=== PATIENT | female | born 1960 | race Caucasian/White ===

== ENCOUNTER 2018-11-21 10:44 | Emergency (ER) | payer OTHER ==
[2018-11-21 10:59] VITALS: TEMP 98; BMI 29.2
--- NOTE | 2018-11-21 11:00 | PDOC ---
History of Present Illness - General Chief Complaint: Blood Pressure Problem Stated Complaint: HYPERTENSION Time Seen by Provider: 11/21/18 10:59 - History of Present Illness Initial Comments: 11/21/18 10:59 Ms. Traore is a 58 yo female w/ pmh of HTN who presents for evaluation of palpitations and increased BP. Patient reports she has had them intermittently since 11/11 and has had 2 days of elevated BP at home in the 180's which concerned her. Patient denies any pain and does not have any palpitations currently. Also complains of 1 week of increased urinary frequency. The patient denies chest pain, shortness of breath, headache and dizziness. Denies fever, chills, nausea, vomit, diarrhea and constipation. Cardiology: Dr. Haddad Past History - Past Medical History Allergies/Adverse Reactions: Allergies Allergy/AdvReac Type Severity Reaction Status Date / Time Sulfa (Sulfonamide Allergy Verified 11/21/18 10:48 Antibiotics) Home Medications: Ambulatory Orders Metoprolol Succinate [Toprol XL -] 25 mg PO BID #60 tab.sr.24h 08/07/15 Amlodipine Besylate [Norvasc -] 2.5 mg PO DAILY #30 tablet 11/21/18 HTN: Yes - Surgical History Cholecystectomy: Yes - Suicide/Smoking/Psychosocial Hx Smoking History: Never smoked Have you smoked in the past 12 months: No If you are a former smoker, when did you quit?: 20 years ago Hx Alcohol Use: No Drug/Substance Use Hx: No Substance Use Type: None Review of Systems - Review of Systems Comments:: 11/21/18 10:59 GENERAL/CONSTITUTIONAL: No fever or chills. No weakness. HEAD, EYES, EARS, NOSE AND THROAT: No change in vision. No ear pain or discharge. No sore throat. CARDIOVASCULAR: +Palpitations as described. No chest pain or shortness of breath RESPIRATORY: No cough, wheezing, or hemoptysis. GASTROINTESTINAL: No nausea, vomiting, diarrhea or constipation. GENITOURINARY: +Increased urinary frequency. MUSCULOSKELETAL: No joint or muscle swelling or pain. No neck or back pain. SKIN: No rash NEUROLOGIC: No headache, vertigo, loss of consciousness, or change in strength/ sensation. ENDOCRINE: No increased thirst. No abnormal weight change HEMATOLOGIC/LYMPHATIC: No anemia, easy bleeding, or history of blood clots. ALLERGIC/IMMUNOLOGIC: No hives or skin allergy. *Physical Exam - Vital Signs Last Vital Signs Temp Pulse Resp BP Pulse Ox 98 F 68 17 185/94 H 98 11/21/18 10:57 11/21/18 10:57 11/21/18 10:57 11/21/18 10:57 11/21/18 10:57 - Physical Exam Comments: 11/21/18 11:00 GENERAL: Awake, alert, and fully oriented, in no acute distress HEAD: No signs of trauma, normocephalic, atraumatic EYES: PERRLA, EOMI, sclera anicteric, conjunctiva clear ENT: Auricles normal inspection, hearing grossly normal, nares patent, oropharynx clear without exudates. Moist mucosa NECK: Normal ROM, supple, no lymphadenopathy, JVD, or masses LUNGS: No distress, speaks full sentences, clear to auscultation bilaterally HEART: Regular rate and rhythm, normal S1 and S2, no murmurs, rubs or gallops, peripheral pulses normal and equal bilaterally. ABDOMEN: Soft, nontender, normoactive bowel sounds. No guarding, no rebound. No masses EXTREMITIES: Normal inspection, Normal range of motion, no edema. No clubbing or cyanosis. NEUROLOGICAL: Cranial nerves II through XII grossly intact. Normal speech, normal gait, no focal sensorimotor deficits SKIN: Warm, Dry, normal turgor, no rashes or lesions noted. ED Treatment Course - LABORATORY CBC & Chemistry Diagram: 11/21/18 11:40 11/21/18 11:40 Medical Decision Making - Medical Decision Making 11/21/18 13:07 Ms. Traore is a 58 yo female w/ pmh as described who presents for evaluation of HTN and palpitations. Patient well appearing upon exam with no current complaints. Patient will be evaluated w/ cardiology workup and will consult performance improvement director following lab/EKG/CXR workup. 11/21/18 13:23 Patient EKG normal sinus. Labs grossly wnl. Repeat BP decreased to 160's. Discussed patient w/ performance improvement director who evaluated patient in ER and recommended amlodipine 2.5 mg added to medication list. Patient given script for 1 month and will f/u w/ cardiology in office for further evaluation. Patient currently pending repeat troponin for dispo. 11/21/18 14:59 2nd troponin negative. Discharging to home for further outpatient follow-up. *DC/Admit/Observation/Transfer Diagnosis at time of Disposition: Palpitations Hypertension Qualifiers: Hypertension type: unspecified Qualified Code(s): I10 - Essential (primary) hypertension - Discharge Dispostion Disposition: HOME - Prescriptions Prescriptions: Amlodipine Besylate [Norvasc -] 2.5 mg PO DAILY #30 tablet - Referrals - Patient Instructions Printed Discharge Instructions: DI for Palpitations Additional Instructions: You were evaluated today in the ER for your symptoms. We performed labs, EKG, and Chest XRay which was all normal. We also had you evaluated by cardiology who recommended adding a new medication to your daily regimen. We have sent a prescription to your pharmacy. Please take all medications as proscribed unless told otherwise by your performance improvement director. Please follow-up later this week in office for further evaluation. Return to ER if any pain, chills, fever, or other concerning symptoms. - Post Discharge Activity
--- NOTE | 2018-11-21 11:15 | EKG ---
Test Reason : Blood Pressure : / mmHG Vent. Rate : 067 BPM Atrial Rate : 067 BPM P-R Int : 162 ms QRS Dur : 076 ms QT Int : 382 ms P-R-T Axes : 046 036 063 degrees QTc Int : 403 ms NORMAL SINUS RHYTHM NORMAL ECG WHEN COMPARED WITH ECG OF 06-AUG-2015 09:30, NO SIGNIFICANT CHANGE WAS FOUND Confirmed by GHAZAL LAM MD ([id number]) on 11/21/2018 11:15:06 AM Referred By: Confirmed By:GHAZAL LAM MD
--- NOTE | 2018-11-21 11:37 | PDOC ---
Attending Attestation - Resident Resident Name: Bashir Loco - ED Attending Attestation I have performed the following: I have examined & evaluated the patient, The case was reviewed & discussed with the resident, I agree w/resident's findings & plan, Exceptions are as noted - HPI HPI: 11/21/18 11:57 58yo F hx HTN on metoprolol presents to the ED with 1 week of intermittent palpitations, 3 days of SOB, and 2 days of elevated BP readings at home Describes palpitations as feeling an extra heart beat, once in a while. REports stress as a trigger, denies exertional palpitations. Denies associated CP, dizziness, diaphoresis. In addition, reports SOB independently of the palpitations which she describes as feeling like she needs to take a deep breath every every few hours, also triggered by stress or "when I get excited." Pt tearful on evaluation due to recent life stressors. Was able to take a brisk walk yesterday which did not trigger sob or palpitations. Due to the palpitatoins, she checked her BP at home and found it to be in 180s systolic, then 160s systolic on subsequent check SInce she felt well, she proceeded to go to work but had her BP checked at work where it was also in 160s systolic prompting ED visit. She states her baseline BP is 130s systolic. Manager Cancer is Dr. Enciso who is on vacation she states. No recent travel, fevers, chills, cough, trauma, headache, focal weakness/ numbness, abd pain, N/V/D, LE edema, or calf tenderness. - Physicial Exam PE: 11/21/18 12:01 GENERAL: Awake, alert, and fully oriented, in no acute distress HEAD: No signs of trauma EYES: PERRLA, EOMI, sclera anicteric, conjunctiva clear ENT: Nares patent, oropharynx clear without exudates. Moist mucosa NECK: Normal ROM, supple, no lymphadenopathy, JVD, or masses LUNGS: Breath sounds equal, clear to auscultation bilaterally. No wheezes, and no crackles HEART: Regular rate and rhythm, normal S1 and S2, no murmurs, rubs or gallops ABDOMEN: Soft, nontender, normoactive bowel sounds. No guarding, no rebound. No masses EXTREMITIES: Normal range of motion, no edema. No clubbing or cyanosis. No cords, erythema, or tenderness NEUROLOGICAL: Normal speech, cranial nerves intact, 5/5 strength in all 4 extremities, normal sensation to light touch in all 4 extremities, normal cerebellar exam, normal gait, normal tone SKIN: Warm, Dry, normal turgor, no rashes or lesions noted. - Medical Decision Making 11/21/18 12:36 58yo F hx HTN prsents to the ED with 1 week of intermittent palpitations, 3 days of intermittent SOB, and elevated BP readings at home Vitals with elevated BP on arrival to 180s systolic, on my evaluation in 160s systolic Exam wnl, pt is well appearing SOB is atypical, described by pt more so as "need to take a deep breath once in a while" WIll check trop, bnp, CXR to r/o ischemic, pna, other causes EKG non ischemic Palpitations most likely occasional PVCs as pt describes mostly "extra beat" With regards to BP, will do w/u looking for hypertensive emergency Plan to reassess 11/21/18 13:23 Labs wnl CXR clear PT seen by Dr. Babb, recommends checking 2nd trop and adding 2.5mg amlodipine to her daily BP regimen Will check 2nd trop at 3 hour liliya, if neg will DC pt stable, feels better since arriving 11/21/18 15:18 Tropx2 neg Pt continues to feel well Has appt with Dr. Enciso tomorrow Eager to go home, happy with care today Return precautions discussed I discussed the physical exam findings, ancillary test results and final diagnoses with the patient. I answered all of the patient's questions. The patient was satisfied with the care received and felt comfortable with the discharge plan and treatment plan. The patient will call their primary care physician within 24 hours to arrange follow-up and will return to the Emergency Department with any new, persistent or worsening symptoms. Heart Score/ECG Review - History History: Slightly suspicious - Electrocardiogram EKG: Normal - Age Age: 45-65 - Risk Factors Based on the list above the patient has:: 1-2 risk factors - Troponin Troponin: </= normal limit - Score Heart Score - Total: 2 #1 11/21/18 12:35 Twelve-lead EKG was performed and reviewed by me. Normal sinus rhythm, rate 67. Normal axis and intervals. No ST elevations or T-wave inversions.
[2018-11-21 12:33] LABS: BASO % 0.9 % (0-2.0); EOS % 1.6 % (0-4.5); HEMATOCRIT 43.6 % (32.4-45.2); HEMOGLOBIN 14.5 GM/dL (10.7-15.3); LYMPH % 18.9 % (8-40); MCH 29.9 pg (25.7-33.7); MCHC 33.2 g/dl (32.0-36.0); MEAN CELL VOLUME 90.1 fl (80-96); MEAN PLT VOLUME 8.5 fl (7.5-11.1); MONO % 6.4 % (3.8-10.2); NEUT % 72.2 % (42.8-82.8); PLATELET COUNT 227 K/MM3 (134-434); RBC 4.84 M/mm3 (3.60-5.2); RDW 14.8 % (11.6-15.6); WHITE BLOOD COUNT 6.2 K/mm3 (4.0-10.0)
[2018-11-21 12:34] LABS: URINE APPEARANCE CLEAR; URINE BILIRUBIN NEGATIVE (NEGATIVE); URINE COLOR YELLOW; URINE GLUCOSE (UA) NEGATIVE (NEGATIVE); URINE KETONE NEGATIVE (NEGATIVE); URINE LEUK ESTERASE NEGATIVE (NEGATIVE); URINE NITRITE NEGATIVE (NEGATIVE); URINE PROTEIN NEGATIVE (NEGATIVE); URINE UROBILINOGEN 0.2 mg/dL (0.2-1.0)
[2018-11-21 12:57] LABS: BILIRUBIN,TOTAL 0.4 mg/dL (0.2-1); BLOOD UREA NITROGEN 11.6 mg/dL (7-18); CALCIUM 9.2 mg/dL (8.5-10.1); CREATININE 0.8 mg/dL (0.55-1.3); POTASSIUM 4.1 mmol/L (3.5-5.1); TOT PROT 7.4 g/dl (6.4-8.2)
--- NOTE | 2018-11-21 13:14 | CON.CARD ---
Consult - History of Present Illness History of Present Illness: Ms. Traore is a 58 yo female w/ pmh of HTN who presents for evaluation of palpitations and increased BP. Patient reports she has had them intermittently since 11/11 and has had 2 days of elevated BP at home in the 180's which concerned her. Patient denies any pain and does not have any palpitations currently. Also complains of 1 week of increased urinary frequency. The patient denies chest pain, shortness of breath, headache and dizziness. Denies fever, chills, nausea, vomit, diarrhea and constipation. - History Source History Provided By: Patient, Medical Record - Past Medical History Cardio/Vascular: Yes: HTN - Alcohol/Substance Use Hx Alcohol Use: No - Smoking History Smoking history: Never smoked Have you smoked in the past 12 months: No If you are a former smoker, when did you quit?: 20 years ago Home Medications - Allergies Allergies/Adverse Reactions: Allergies Allergy/AdvReac Type Severity Reaction Status Date / Time Sulfa (Sulfonamide Allergy Verified 11/21/18 10:48 Antibiotics) - Home Medications Home Medications: Ambulatory Orders Metoprolol Succinate [Toprol XL -] 25 mg PO BID #60 tab.sr.24h 08/07/15 Amlodipine Besylate [Norvasc -] 2.5 mg PO DAILY #30 tablet 11/21/18 Review of Systems - Review of Systems Constitutional: reports: No Symptoms Eyes: reports: No Symptoms HENT: reports: No Symptoms Neck: reports: No Symptoms Cardiovascular: reports: No Symptoms Gastrointestinal: reports: No Symptoms Genitourinary: reports: No Symptoms Breasts: reports: No Symptoms Reported Musculoskeletal: reports: No Symptoms Integumentary: reports: No Symptoms Neurological: reports: No Symptoms Endocrine: reports: No Symptoms Hematology/Lymphatic: reports: No Symptoms Psychiatric: reports: No Symptoms Vital Signs: Vital Signs Temperature 98 F 11/21/18 10:57 Pulse Rate 68 11/21/18 10:57 Respiratory Rate 17 11/21/18 10:57 Blood Pressure 161/92 11/21/18 11:57 O2 Sat by Pulse Oximetry (%) 98 11/21/18 10:57 Constitutional: Yes: Well Nourished, No Distress, Calm Eyes: Yes: WNL, Conjunctiva Clear, EOM Intact HENT: Yes: WNL, Atraumatic, Normocephalic Neck: Yes: WNL, Supple, Trachea Midline Respiratory: Yes: WNL, Regular, CTA Bilaterally Gastrointestinal: Yes: WNL, Normal Bowel Sounds Renal/: Yes: WNL Cardiovascular: Yes: WNL, Regular Rate and Rhythm Heart Sounds: Yes: S1, S2 Musculoskeletal: Yes: WNL Extremities: Yes: WNL Integumentary: Yes: WNL Neurological: Yes: WNL, Alert, Oriented ...Motor Strength: WNL Psychiatric: Yes: WNL, Alert, Oriented - Other Data Labs, Other Data: CBC, BMP 11/21/18 11:40 11/21/18 11:40 Troponin, BNP 11/21/18 11:40 Troponin I < 0.02 Troponin, BNP 11/21/18 11:40 Troponin I < 0.02 Laboratory Tests 11/21/18 11/21/18 11/21/18 11:40 11:40 11:40 WBC 6.2 RBC 4.84 Hgb 14.5 Hct 43.6 MCV 90.1 MCH 29.9 MCHC 33.2 RDW 14.8 Plt Count 227 MPV 8.5 D Absolute Neuts (auto) 4.5 Neutrophils % 72.2 Lymphocytes % 18.9 D Monocytes % 6.4 Eosinophils % 1.6 Basophils % 0.9 Nucleated RBC % 0 Sodium 141 Potassium 4.1 Chloride 107 Carbon Dioxide 27 Anion Gap 7 L BUN 11.6 Creatinine 0.8 Est GFR (CKD-EPI)AfAm 92.87 Est GFR (CKD-EPI)NonAf 80.13 Random Glucose 89 Calcium 9.2 Total Bilirubin 0.4 AST 16 ALT 29 Alkaline Phosphatase 124 H Creatine Kinase 73 Troponin I < 0.02 Total Protein 7.4 Albumin 4.0 Urine Color Urine Appearance Urine pH Ur Specific [place] Urine Protein Urine Glucose (UA) Urine Ketones Urine Blood Urine Nitrite Urine Bilirubin Urine Urobilinogen Ur Leukocyte Esterase 11/21/18 11/21/18 11:40 13:50 WBC RBC Hgb Hct MCV MCH MCHC RDW Plt Count MPV Absolute Neuts (auto) Neutrophils % Lymphocytes % Monocytes % Eosinophils % Basophils % Nucleated RBC % Sodium Potassium Chloride Carbon Dioxide Anion Gap BUN Creatinine Est GFR (CKD-EPI)AfAm Est GFR (CKD-EPI)NonAf Random Glucose Calcium Total Bilirubin AST ALT Alkaline Phosphatase Creatine Kinase Troponin I < 0.02 Total Protein Albumin Urine Color Yellow Urine Appearance Clear Urine pH 6.0 Ur Specific [place] 1.007 L Urine Protein Negative Urine Glucose (UA) Negative Urine Ketones Negative Urine Blood Negative Urine Nitrite Negative Urine Bilirubin Negative Urine Urobilinogen 0.2 Ur Leukocyte Esterase Negative Imaging - Results Chest X-ray: Pending EKG: Image Reviewed (s wnl) Problem List - Problems (1) Palpitations Code(s): R00.2 - PALPITATIONS (2) Hypertension Code(s): I10 - ESSENTIAL (PRIMARY) HYPERTENSION Qualifiers: Hypertension type: unspecified Qualified Code(s): I10 - Essential (primary ) hypertension Assessment/Plan htn atypical cp palpitations ekg wnl ce neg x 1/c home if 2 sets of ce 6 Plan d/c home if 2 sets of CE neg 6 hrs apart amlodipine 2.5 qd for better bp control f/u in the office 1 week
[2018-11-21] MEDS ORDERED: amLODIPine BESYLATE 2.5 MG TABLET (FP) PO ONE (13:19)
[2018-11-21] MEDS ORDERED: amLODIPine BESYLATE 5 MG TABLET (FP) ONE (13:23)
[2018-11-21 16:01] VITALS: BP 175/96; PULSE 63
== END 2018-11-21 15:45 | disposition home or self-care (01) ==
LOC: JER 10:44
DX: R00.2 Palpitations (principal); I10 Essential (primary) hypertension
CPT/HCPCS: 36415; 71046-TC-FY; 80053; 81003; 82550; 84484; 85025; 87086; 93005; 93010; 99283-25

== ENCOUNTER 2024-08-03 19:48 | Emergency (ER) | payer OTHER ==
[2024-08-03 20:03] VITALS: TEMP 98; BMI 27.8
[2024-08-03] MEDS: IBUPROFEN 600 MG TABLET (FP) PO ONE (20:38)
[2024-08-03] MEDS ORDERED: IBUPROFEN 600 MG TABLET (FP) PO ONE (20:41)
[2024-08-03 23:12] VITALS: BP 128/70; PULSE 62; RESP 16
== END 2024-08-03 23:23 | disposition home or self-care (01) ==
LOC: JER 19:48
DX: R68.84 Jaw pain (principal); R20.2 Paresthesia of skin; R20.0 Anesthesia of skin; R22.0 Localized swelling, mass and lump, head
CPT/HCPCS: 70150-TC-FY; 99283-25